=== PATIENT | female | born 1995 | race Caucasian/White ===

== ENCOUNTER 2017-11-24 14:17 | Emergency (ER) | payer MEDICAID ==
[~2017-11-24] VITALS: Ht 149.9 cm; Wt 61.2 kg
[2017-11-24 14:22] VITALS: BP_SYST 135
[2017-11-24 15:10] VITALS: BP_SYST 107
== END 2017-11-24 15:10 | disposition home or self-care (01) ==
LOC: SED 14:17
DX: J30.9 Allergic rhinitis, unspecified (principal); R51 Headache; F17.210 Nicotine dependence, cigarettes, uncomplicated
CPT/HCPCS: 99283

== ENCOUNTER 2018-03-01 12:44 | Emergency (ER) | payer MEDICAID ==
[~2018-03-01] VITALS: Ht 149.9 cm; Wt 61.7 kg
[2018-03-01 12:49] VITALS: BP_SYST 118
[2018-03-01] MEDS ORDERED: DIPH-TET-PERTUS Vaccine 0.5 ML VIAL (ADACEL) I.M. ONE (14:00)
[2018-03-01 14:15] VITALS: BP_SYST 115
== END 2018-03-01 14:12 | disposition home or self-care (01) ==
LOC: SED 12:44
DX: T24.211A Burn of second degree of right thigh, initial encounter (principal); X08.8XXA Exposure to other specified smoke, fire and flames, initial encounter; Y93.89 Activity, other specified; Y92.89 Other specified places as the place of occurrence of the external cause; Y99.8 Other external cause status
CPT/HCPCS: 90715; 99283

== ENCOUNTER 2019-01-07 10:37 | Emergency (ER) | payer MEDICAID ==
[~2019-01-07] VITALS: Ht 149.9 cm; Wt 68.0 kg
[2019-01-07 10:53] VITALS: BP_SYST 140
[2019-01-07] MEDS ORDERED: NACL 0.9% 1,000 ML IV ONE (11:22)
[2019-01-07 11:44] LABS: BILIRUBIN,URINE 1+ (NEGATIVE); BLOOD, URINE 3+ (NEGATIVE); CLARITY/URINE SL CLOUDY (CLEAR); COLOR,URINE RED (YELLOW); GLUCOSE,URINE NEGATIVE (NEGATIVE); KETONES,URINE NEGATIVE (NEGATIVE); LEUKOCYTE ESTERASE ,URINE NEGATIVE (NEGATIVE); NITRITE, URINE NEGATIVE (NEGATIVE); PH,URINE 5.5 (5.0-8.0); PROTEIN URINE 1+ (NEGATIVE); UROBILINOGEN,URINE 0.2 (0.2-1.0)
[2019-01-07 12:15] LABS: BACTERIA,URINE RARE /HPF (None Seen); RBC,URINE >100 /HPF (0-3); WBC,URINE 0-3 /HPF (0-3)
[2019-01-07 13:27] LABS: BASOPHILS % (AUTO) 0.4 % (0.0-2.0); EOSINOPHILS # (AUTO) 0.1 K/uL (0.0-0.4); HEMOGLOBIN 13.5 g/dL (12.0-16.0); LYMPHOCYTES % (AUTO) 27.6 % (20.5-51.5); MEAN CORPUSCULAR HEMOGLOBIN 28 pg (27-31); MEAN CORPUSCULAR HGB CONC 33 % (32-36); MEAN CORPUSCULAR VOLUME 86 fL (79.0-98.0); MONOCYTES # (AUTO) 0.6 K/uL (0.0-1.0); NEUTROPHILS # (AUTO) 4.6 K/uL (1.8-7.7); PLATELET COUNT (AUTO) 221 K/uL (130-430); RED BLOOD CELL COUNT(AUTO) 4.77 MIL/uL (4.2-6.2); WHITE BLOOD COUNT (AUTO) 7.3 K/uL (4.8-10.8)
[2019-01-07 13:47] LABS: INR 0.9 (0.8-1.2); PROTHROMBIN TIME 9.7 SECS (9.5-12.5)
[2019-01-07 13:48] LABS: CREATININE 0.63 mg/dL (0.55-1.30); POTASSIUM 3.6 mmol/L (3.5-5.1)
[2019-01-07 14:03] LABS: TOTAL BILIRUBIN 0.2 mg/dL (0.0-1.0)
[2019-01-07 15:00] VITALS: BP_SYST 124
== END 2019-01-07 15:00 | disposition home or self-care (01) ==
LOC: SED 10:37
DX: O03.4 Incomplete spontaneous abortion without complication (principal); Z3A.01 Less than 8 weeks gestation of pregnancy
CPT/HCPCS: 36415; 76830; 76857; 80053; 81000; 81025; 83690; 84702; 85025; 85610; 85730; 86900; 86901; 99284; J7030

== ENCOUNTER 2019-01-10 12:08 | Emergency (ER) | payer MEDICAID ==
[~2019-01-10] VITALS: Ht 149.9 cm; Wt 68.0 kg
[2019-01-10 12:08] VITALS: BP_SYST 128
--- NOTE | 2019-01-10 12:10 | NUR ---
Patient triaged and placed in waiting room. VSS and patient appears in no acute distress at this time. Accompanied by SELF, awaiting available bed, and MD notified of need for MSE.
--- NOTE | 2019-01-10 13:21 | NUR ---
Patient to ER bed h1 for evaluation. Side rails up.
--- NOTE | 2019-01-10 13:26 | NUR ---
JAK Bradford at bedside examining patient.
--- NOTE | 2019-01-10 13:30 | NUR ---
Pt AAOx4 ambulated into ED to repeat a test s/p incomplete miscarriage x 2 days ago. Mild vaginal bleeding present. No other injuries/complaints per pt/noted. Will continue to monitor.
[2019-01-10 13:34] VITALS: BP_SYST 121
--- NOTE | 2019-01-10 13:35 | NUR ---
Patient given written and verbal discharge instructions and verbalizes understanding. ER MD discussed with patient the results and treatment provided. Patient in stable condition. ID arm band removed. Rx of NONE given. Patient educated on pain management and to follow up with PMD. Pain Scale 0/10. Opportunity for questions provided and answered. Medication side effect fact sheet provided.
== END 2019-01-10 13:35 | disposition home or self-care (01) ==
LOC: SED 12:08
DX: O03.9 Complete or unspecified spontaneous abortion without complication (principal); R03.0 Elevated blood-pressure reading, without diagnosis of hypertension; Z3A.01 Less than 8 weeks gestation of pregnancy
CPT/HCPCS: 36415; 84702-TC; 99283

== ENCOUNTER 2019-02-22 13:11 | Emergency (ER) | payer MEDICAID ==
[~2019-02-22] VITALS: Ht 149.9 cm; Wt 70.8 kg
[2019-02-22 13:15] VITALS: BP_SYST 135
--- NOTE | 2019-02-22 13:17 | NUR ---
AMBULATED TO BED 6
--- NOTE | 2019-02-22 13:32 | NUR ---
ER Dr. DUKE at bedside examining patient.
--- NOTE | 2019-02-22 14:00 | NUR ---
Pt came into ED with left ear discomfort for 2 days. Pt states she is feeling no pain. Pt states she has been swimming a lot lately and thinks she might have gotten water in her ear. Pt is A&Ox4. Pt states she's having some nausea but no V/D. Pt also has hx of miscarriage and believes she may be again, is requesting bloodwork to confirm. Pt kept deferring questions about earache to talk about possible .
--- NOTE | 2019-02-22 15:40 | NUR ---
Patient given written and verbal discharge instructions and verbalizes understanding. ER MD discussed with patient the results and treatment provided. Patient in stable condition. ID arm band removed. Rx of cortisporin otic given. Patient educated on pain management and to follow up with PMD. Pain Scale 0/10. Opportunity for questions provided and answered. Medication side effect fact sheet provided.
[2019-02-22 15:43] VITALS: BP_SYST 121
== END 2019-02-22 15:40 | disposition home or self-care (01) ==
LOC: SED 13:11
DX: O26.891 Other specified pregnancy related conditions, first trimester (principal); H60.92 Unspecified otitis externa, left ear; Z3A.01 Less than 8 weeks gestation of pregnancy
CPT/HCPCS: 36415; 81025; 84702-TC; 99283

== ENCOUNTER 2019-03-21 12:10 | Emergency (ER) | payer MEDICAID ==
[~2019-03-21] VITALS: Ht 149.9 cm; Wt 72.6 kg
[2019-03-21 12:20] VITALS: BP_SYST 137
--- NOTE | 2019-03-21 12:24 | NUR ---
Patient triaged and placed in waiting room. VSS and patient appears in no acute distress at this time. Accompanied by self, awaiting available bed, and MD notified of need for MSE.
--- NOTE | 2019-03-21 12:29 | NUR ---
Patient to ER bed 05 for evaluation. Side rails up. Report given to Christie BENITO.
--- NOTE | 2019-03-21 12:34 | NUR ---
JAK Bradford at bedside examining patient.
[2019-03-21] MEDS ORDERED: LOPERAMIDE HCL 2 MG CAPSULE PO ONE (12:45)
[2019-03-21] MEDS ORDERED: ONDANSETRON HCL 4 MG/2 ML VIAL IVP ONE (12:45)
[2019-03-21] MEDS ORDERED: ACETAMINOPHEN 500 MG TABLET PO ONE (12:45)
[2019-03-21] MEDS ORDERED: NACL 0.9% 1,000 ML IV ONE (12:45)
--- NOTE | 2019-03-21 12:45 | NUR ---
PATIENT CAME IN COMPLAINING OF "FOOD POISINING." PATIENT SAID SHE HAD WENDYS LAST NIGHT AND FELT LIKE IT WAS NOT FRESH. PATIENT STATES FEELS THE SAME. PATIENT COMPLAINING OF ABDOMINAL PAIN 02/14. PATIENT ALSO COMPLAINING OF NASUEA BUT NO VOMITING. PATIENT STATES SHE HAS WATERY DIRRHEA. PATIENT STATES SHE IS PREGANT AND WANTS TO MAKE SURE BABY IS OKAY. PATIENT NOT COMPLAINING OF SOB. PATIENT ALERT AND ORIENTED X4.
--- NOTE | 2019-03-21 12:50 | NUR ---
# 20 gauge angiocath placed to left AC. Use of asceptic technique. Opsite placed over site. Blood return noted. Blood for lab drawn from site. Flushed with 10 cc of normal saline. No evidence of infiltration noted. Patient tolerated well.
[2019-03-21 13:40] LABS: BASOPHILS % (AUTO) 0.1 % (0.0-2.0); EOSINOPHILS % (AUTO) 0.3 % (0.0-4.0); HEMATOCRIT 39.1 % (36-48); HEMOGLOBIN 13.1 g/dL (12.0-16.0); LYMPHOCYTES # (AUTO) 1.6 K/uL (1.0-5.5); LYMPHOCYTES % (AUTO) 10.5 % (20.5-51.5); MEAN CORPUSCULAR HEMOGLOBIN 28 pg (27-31); MEAN CORPUSCULAR HGB CONC 34 % (32-36); MEAN CORPUSCULAR VOLUME 85 fL (79.0-98.0); MONOCYTES # (AUTO) 0.8 K/uL (0.0-1.0); MONOCYTES % (AUTO) 5.2 % (1.7-9.3); NEUTROPHILS # (AUTO) 12.5 K/uL (1.8-7.7); NEUTROPHILS % (AUTO) 83.9 % (40.0-70.0); PLATELET COUNT (AUTO) 207 K/uL (130-430); RED BLOOD CELL COUNT(AUTO) 4.62 MIL/uL (4.2-6.2); RED CELL DISTRIBUTION WIDTH 13.3 % (9.0-15.0); WHITE BLOOD COUNT (AUTO) 14.9 K/uL (4.8-10.8)
[2019-03-21 13:55] LABS: CALCIUM 8.7 mg/dL (8.4-11.0); CREATININE 0.57 mg/dL (0.55-1.30); POTASSIUM 3.5 mmol/L (3.5-5.1)
--- NOTE | 2019-03-21 13:55 | NUR ---
PATIENT RESTING IN BED WITH MOTHER AT SIDE. PATIENT DENIES PAIN. PATIENT JUST WORRIED IF BABY IS OKAY. DR WHITTIGNTON AWARE.
--- NOTE | 2019-03-21 14:21 | NUR ---
PATIENT LEAVING TO [facility] SOUND IN STABLE CONDITION.
--- NOTE | 2019-03-21 15:05 | NUR ---
PATIENT BACK FROM CT IN STABLE CONDITION.
--- NOTE | 2019-03-21 15:13 | NUR ---
Patient given written and verbal discharge instructions and verbalizes understanding. ER MD discussed with patient the results and treatment provided. Patient in stable condition. ID arm band removed. IV catheter removed intact and dressing applied, no active bleeding. Rx of ZOFRAN, IMMODIUM given. Patient educated on pain management and to follow up with PMD. Pain Scale 0/10. Opportunity for questions provided and answered. Medication side effect fact sheet provided.
[2019-03-21 15:15] VITALS: BP_SYST 127
== END 2019-03-21 15:13 | disposition home or self-care (01) ==
LOC: SED 12:10
DX: O9A.211 Injury, poisoning and certain other consequences of external causes complicating pregnancy, first trimester (principal); T62.8X1A Toxic effect of other specified noxious substances eaten as food, accidental (unintentional), initial encounter; K52.1 Toxic gastroenteritis and colitis; O20.8 Other hemorrhage in early pregnancy; Z3A.09 9 weeks gestation of pregnancy; Y92.89 Other specified places as the place of occurrence of the external cause
CPT/HCPCS: 36415; 76801; 76817; 80048; 85025; 96374; 99284; J2405; J7030

== ENCOUNTER 2024-02-27 18:45 | Emergency (ER) | payer MEDICAID ==
[~2024-02-27] VITALS: Ht 149.9 cm; Wt 77.1 kg
[2024-02-27 19:03] VITALS: BP_SYST 94; PULSE 65; RESP 17; TEMP 96.8; O2SAT 95
[2024-02-27] MEDS: ONDANSETRON 4 MG ODT TAB PO ONE (19:31)
[2024-02-27] MEDS ORDERED: ONDA-8 TL (20:36)
[2024-02-27 20:53] VITALS: BP_SYST 106; PULSE 94; RESP 18; TEMP 98.2; O2SAT 96
== END 2024-02-27 20:53 | disposition home or self-care (01) ==
LOC: SED 18:45
DX: A08.4 Viral intestinal infection, unspecified (principal); R11.2 Nausea with vomiting, unspecified; R19.7 Diarrhea, unspecified; Z79.899 Other long term (current) drug therapy
CPT/HCPCS: 99283; Q0162

== ENCOUNTER 2024-05-24 08:06 | Emergency (ER) | payer MEDICAID ==
[~2024-05-24] VITALS: Ht 149.9 cm; Wt 77.1 kg
[~2024-05-24 08:06] MED LIST: ONDA-8 TL
[2024-05-24 08:14] VITALS: BP_SYST 145; PULSE 89; RESP 20; TEMP 98.3; O2SAT 98
[2024-05-24 08:49] LABS: BASOPHILS % (AUTO) 0.6 % (0.0-2.0); EOSINOPHILS # (AUTO) 0.1 K/uL (0.0-0.4); EOSINOPHILS % (AUTO) 0.8 % (0.0-4.0); HEMATOCRIT 37.3 % (36-48); HEMOGLOBIN 12.4 g/dL (12.0-16.0); LYMPHOCYTES % (AUTO) 26.5 % (20.5-51.5); MEAN CORPUSCULAR HEMOGLOBIN 28 pg (27-31); MEAN CORPUSCULAR HGB CONC 33 % (32-36); MEAN CORPUSCULAR VOLUME 83 fL (79.0-98.0); MONOCYTES # (AUTO) 0.4 K/uL (0.0-1.0); MONOCYTES % (AUTO) 5.1 % (1.7-9.3); PLATELET COUNT (AUTO) 235 K/uL (130-430); RED BLOOD CELL COUNT(AUTO) 4.48 MIL/uL (4.2-6.2); RED CELL DISTRIBUTION WIDTH 14.4 % (9.0-15.0); WHITE BLOOD COUNT (AUTO) 7.5 K/uL (4.8-10.8)
[2024-05-24] MEDS: IBUPROFEN 800 MG TABLET PO ONE (08:49)
[2024-05-24 08:51] LABS: ERYTHROCYTE SEDIMENTATION RATE 8 MM/HR (0-20)
[2024-05-24 09:13] LABS: SERUM HCG (QUALITATIVE) NEGATIVE (NEGATIVE)
[2024-05-24 09:27] LABS: CALCIUM 8.7 mg/dL (8.4-11.0); CREATININE 0.7 mg/dL (0.55-1.30); URIC ACID 4.6 mg/dL (2.4-7.0)
[2024-05-24] MEDS ORDERED: HYDR-3927 PO (09:36)
[2024-05-24] MEDS ORDERED: IBUP-1969 PO (09:36)
[2024-05-24 09:50] VITALS: BP_SYST 145; PULSE 89; RESP 20; TEMP 98.3; O2SAT 98
== END 2024-05-24 09:48 | disposition home or self-care (01) ==
LOC: SED 08:06
DX: M75.21 Bicipital tendinitis, right shoulder (principal); Z79.899 Other long term (current) drug therapy; Z79.2 Long term (current) use of antibiotics
CPT/HCPCS: 36415; 73030; 80048; 84550; 84703; 85025; 85651; 99284